=== PATIENT | female | born 1940 | race Caucasian/White ===

== ENCOUNTER 2016-12-04 20:00 | Emergency (ER) | payer OTHER ==
[~2016-12-04] VITALS: Ht 157.5 cm; Wt 66.8 kg
[2016-12-04 20:01] VITALS: BP 121/76
== END 2016-12-04 22:33 | disposition home or self-care (01) ==
LOC: ED 21:55
DX: N30.01 Acute cystitis with hematuria (principal); E11.9 Type 2 diabetes mellitus without complications
CPT/HCPCS: 81001; 87086; 99284